=== PATIENT | female | born 1990 | race Caucasian/White ===

== ENCOUNTER → 2023-10-30 10:42 | Outpatient (REF) | payer OTHER, SELFPAY | LOC: RAD 10:42 | PROVIDERS: ATTENDING PHYSICIAN Physician Assistant | DX: R22.2 Localized swelling, mass and lump, trunk (principal) | CPT/HCPCS: 76604 ==

== ENCOUNTER 2024-01-06 20:22 | Emergency (ER) | payer OTHER, SELFPAY ==
[2024-01-06 20:24] VITALS: BP 139/100
--- NOTE | 2024-01-06 20:37 | ED.GENMED ---
History of Present Illness
General
Chief Complaint: Musculo-Skeletal Complaint
Time Seen by Provider: 01/06/24 20:34
Travel History
Have you had any contact with someone who has COVID-19?: No
Do you have any symptoms of coronavirus? Fever > 100 degrees, chills, cough, shortness of breath, sore throat, loss of taste or smell, muscle aches, or headache?: No
History of Present Illness
History of Present Illness:
HPI: Patient presents due to right-sided low back pain. This has been ongoing over the past few days worsened today that she felt he RLE give out and she can fecal incontinence at noon. She also reports component of chronic low back pain along the
midline related to failed epidural procedure at [facility] related to her delivery.
EXAM:
GENERAL: Well appearing in no distress
HEENT: Moist oral mucosa
CARDIOVASCULAR: No murmurs, normal heart rate, regular rhythm, No chest wall tenderness
PULMONARY: No respiratory distress, breath sounds are clear and equal
ABDOMEN: Soft with no peritoneal signs, no tenderness, palpable lipoma in the right upper quadrant soft tissue of the abdomen
BACK: There is mild tenderness just above the PSIS region with no midline L-spine tenderness, negative straight leg raise
NEUROLOGIC: Excellent strength all extremities, no coordination deficits, 5 out of 5 strength in both lower extremities, normal reflex bilateral L4, normal sensation, normal anal tone (TELMA Mccray in the room)
PSYCHIATRIC: Appropriate mental status, normal insight and judgement
EXTREMITIES: Nontender, no edema, moves all extremities equally
SKIN: No rash, no lesions
TIME OF INITIAL ENCOUNTER: 8:45 PM
NUMBER AND COMPLEXITY OF PROBLEMS ADDRESSED AT THE ENCOUNTER
� Chronic conditions affecting care: Has had bariatric surgery
� Acute Exacerbation and/or Progression of Chronic Illness: This is an acute problem
� Differential Diagnosis includes: Nonspecific low back pain, sciatica however the patient has no
AMOUNT AND/OR COMPLEXITY OF DATA TO BE REVIEWED AND ANALYZED
� I performed an independent evaluation of and my interpretation is:
EKG:
CT:
X-rays:
Laboratory Studies:
Other: MRI shows no acute abnormality
� Review of other/old records: I reviewed old records that show a recent lipoma by ultrasound
� Clinical information was obtained by an independent historian:
� Prescriptions/Medications Considered but not given: Recommend against NSAIDs orally as the patient has a history of gastric bypass.
� Further testing considered but not performed:
RISK OF COMPLICATIONS AND/OR MORBIDITY OR MORTALITY OF PATIENT MANAGEMENT
� Social determinants of health affecting care:
� Discussion with other providers: I discussed the concerns with Dr. Owens regarding obtaining MRI tonight
� Escalation of care including admission/observation vs risk of discharge considered: MR imaging unremarkable for acute abnormality. She did not want anything for pain currently. I did give a prescription for short course of
narcotic analgesia.
Past History
Past History
ED Past Medical History: None and Other (That is post surgery for obesity, status post knee surgery, status post slipped capital femoral epiphysis); Negative Asthma, HTN, Hypercholesterolemia or NIDDM
ED Past Surgical History: Cholecystectomy, Orthopedic (Left and right hip surgery, Knee surgery) and Other (Bariatric surgery)
Social History
Tobacco: Non-smoker
Alcohol: None
Drug: None
Personal: Other ()
Living: alone
Employment: Employed
Family History
Family History: Negative Sudden
Phy Exam
Physical Exam
Physical Exam:
See HPI
Course
Orders/Labs/Results
Orders:
Orders
01/06/24 21:00
MR Lumbar Without Contrast Urgent
Comment:
Reason For Exam: stool incontinence, low back pain, gait dysfunctio
Recent pill cam endoscopy?: No
Vital Signs
Initial and Last Documented VS:
Initial Vital Signs
Temp Pulse Resp BP Pulse Ox
98.2 F 91 18 139/100 97
01/06/24 20:24 01/06/24 20:24 01/06/24 20:24 01/06/24 20:24 01/06/24 20:24
Last Documented Vital Signs
Temp Pulse Resp BP Pulse Ox
98.2 F 79 18 115/79 98
01/06/24 20:24 01/06/24 22:23 01/06/24 22:23 01/06/24 22:23 01/06/24 22:23
*Critical Care Note
Total Time (30-74mins, 75-104mins- exclusive of procedures): Not Applicable
ED Attending Note
-
Portions of this chart may have been created with voice recognition software.� Occasional wrong word or��sound alike� substitutions may have occurred due to the inherent limitations of voice recognition software.
Discharge Plan
Departure
Patient Disposition: Home (Routine Discharge)
Date of Disposition: 01/06/24
Time of Disposition: 22:20
Patient with high blood pressure during this ER visit?: Yes
Discharge Problem:
Low back pain
Instructions: Low Back Pain ED, BLOOD PRESSURE
Prescriptions:
New
oxycodone-acetaminophen [Percocet] 5-325 mg tablet
1 - 2 tab PO Q6HPRN PRN (Reason: pain) Qty: 14 0RF
No Action
No Current Medications
ibuprofen 600 mg tablet
600 mg PO Q6H PRN (Reason: pain) Qty: 20 0RF
Referrals:
UNKNOWN - PT DOES,NOT KNOW [Family Provider] -
Activity Restrictions/Additional Instructions:
The radiologist said there is no fracture or dislocation, there is no 'spondylolisthesis', there is no bulging or disc herniation. Incidental findings: 'Small Schmorl's nodes at L4'-this would not be the cause of your pain. Follow-up your primary
care doctor. Return here if worse. I sent a prescription for Percocet to your pharmacy. If you take Percocet, I recommend taking something like MiraLAX to help prevent constipation.
Interventions
Interventions:
*Risk Screen - Suicide Last Done: 01/06/24 20:24
*General Assessment Last Done: 01/06/24 20:24
*Neglect/Abuse Screening Last Done: 01/06/24 20:24
ED- Fall Risk Assessment Last Done: 01/06/24 20:54
*ED COVID-19 Vaccine History Last Done: 01/06/24 20:44
ED-Musculoskeletal Assessment Last Done: 01/06/24 20:53
Discharge Date and Time
Print Language: [id number]
[2024-01-06 20:53] VITALS: BMI 37.0
[2024-01-06 22:23] VITALS: BP 115/79
== END 2024-01-06 22:44 | disposition home or self-care (01) ==
LOC: EMR 20:22
PROVIDERS: EMERGENCY PHYSICIAN Emergency Medicine
DX: M54.50 Low back pain, unspecified (principal); R03.0 Elevated blood-pressure reading, without diagnosis of hypertension
CPT/HCPCS: 99283; 72148

== ENCOUNTER 2024-02-26 06:42 | Day surgery (SDC) | payer OTHER, SELFPAY ==
[2024-02-26] MEDS: TYLENOL 1000 MG PO (08:18)
[2024-02-26] MEDS: NORMOSOL-R 1000 IV (08:18)
[2024-02-26 08:19] VITALS: BMI 36.1
[2024-02-26 08:20] VITALS: BP 96/57
[2024-02-26 08:33] VITALS: BMI 36.1
[2024-02-26 10:05] VITALS: BP 90/52
[2024-02-26 10:20] VITALS: BP 90/57
[2024-02-26 10:35] VITALS: BP 95/51
== END 2024-02-26 10:43 | disposition home or self-care (01) ==
LOC: SDS 06:42
PROVIDERS: ATTENDING PHYSICIAN Surgery; FAMILY PHYSICIAN Physician Assistant
DX: D17.1 Benign lipomatous neoplasm of skin and subcutaneous tissue of trunk (principal); R22.2 Localized swelling, mass and lump, trunk; Z98.84 Bariatric surgery status
CPT/HCPCS: 21552; 88304

== ENCOUNTER → 2024-10-08 17:15 | Outpatient (REF) | payer OTHER, SELFPAY | LOC: RAD 17:15 | PROVIDERS: ATTENDING PHYSICIAN Obstetrics & Gynecology; FAMILY PHYSICIAN Family Medicine | DX: R10.2 Pelvic and perineal pain (principal) | CPT/HCPCS: 76830; 76856 ==

== ENCOUNTER 2025-02-11 10:31 | Emergency (ER) | payer OTHER, SELFPAY ==
[2025-02-11 10:32] VITALS: BP 138/85
[2025-02-11 11:56] LABS: Urine Character Clear (Clear)
[2025-02-11 12:07] LABS: HCG, Urine Qualitative Screen Negative
--- NOTE | 2025-02-11 12:11 | ED.GENMED ---
History of Present Illness
General
Chief Complaint: Flank Pain
Time Seen by Provider: 02/11/25 10:51
History of Present Illness
History of Present Illness:
34-year-old female presents to the emergency department for evaluation of right flank pain intermittently for the past 2 weeks seems to be worse with certain movements particularly when attempting to bend forward or get up from a seated position.
Unable to tolerate lying flat. Seems to radiate occasionally to the anterior right abdomen. No fevers, chills, night sweats, nausea, vomiting, or lower urinary tract voiding symptoms. Prior history of cholecystectomy
Past History
Past History
ED Past Medical History: None and Other (That is post surgery for obesity, status post knee surgery, status post slipped capital femoral epiphysis); Negative Asthma, HTN, Hypercholesterolemia or NIDDM
ED Past Surgical History: Cholecystectomy, Orthopedic (Left and right hip surgery, Knee surgery) and Other (Bariatric surgery)
Social History
Tobacco: Non-smoker
Alcohol: None
Drug: None
Personal: Other ()
Living: alone
Employment: Employed
Family History
Family History: Negative Sudden
Review of Systems
Review of Systems
Allergies reviewed?: Yes
All Other Systems: ROS reviewed and negative except as documented in HPI and ROS
Phy Exam
Physical Exam
Physical Exam:
GEN: Well appearing, NAD, WDWN
HEENT: Oral mucosa moist, no scleral icterus
Cardiac: Regular rate
Lung: No respiratory distress, no tachypnea
Abdomen: Soft, mild right upper quadrant tenderness, no rigidity negative Peres sign
MSK: No gross deformity or injuries. Focal tenderness to the right paraspinous lumbar musculature, no midline bony tenderness
Skin: Good color, no pallor or jaundice, no rashes
Neuro: AO x3, moves all extremities freely
Psych: Calm, cooperative
Course
Orders/Labs/Results
Orders:
Orders
02/11/25 11:03
Test Result ONCE
02/11/25 11:14
Beta Hcg Urine Qualitative Screen [HCG, Urine Qualitative Screen] Urgent
Date Specimen was Collected: 02/11/25
Time Specimen was Collected: 11:11
Urinalysis Reflex To Culture Urgent
Date Specimen was Collected: 02/11/25
Time Specimen was Collected: 11:11
Urine Microscopic Reflex Cult Urgent
02/11/25 12:02
US Renal With Bladder Urgent
Comment:
Reason For Exam: R flank pain
Abnormal Lab Results
02/11/25
11:14
Ur Occult Blood Reflex 1+ A
(Negative)
Urine Bacteria (Reflex) Few A
(Negative)
Vital Signs
Initial and Last Documented VS:
Initial Vital Signs
Temp Pulse Resp BP Pulse Ox
97.5 F 95 16 138/85 99
02/11/25 10:32 02/11/25 10:32 02/11/25 10:32 02/11/25 10:32 02/11/25 10:32
Last Documented Vital Signs
Temp Pulse Resp BP Pulse Ox
97.5 F 80 20 122/84 99
02/11/25 10:32 02/11/25 14:00 02/11/25 14:00 02/11/25 14:00 02/11/25 14:00
MDM/Problems Addressed
MDM/Problems Addressed:
Unclear etiology however favor musculoskeletal given easy reproducibility. Urinalysis bland and ultrasound shows no evidence for hydronephrosis or renal abnormalities. Recommend NSAIDs, patient was previously referred to PT and have encouraged her
to utilize this
*Pulse Oximetry
SaO2: 99
Oxygen Mode of Delivery: Room air
Patient hypoxic: no
*Critical Care Note
Total Time (30-74mins, 75-104mins- exclusive of procedures): Not Applicable
ED Attending Note
-
Portions of this chart may have been created with voice recognition software.� Occasional wrong word or��sound alike� substitutions may have occurred due to the inherent limitations of voice recognition software.
Discharge Plan
Departure
Patient Disposition: Home (Routine Discharge)
Date of Disposition: 02/11/25
Time of Disposition: 14:13
Patient with high blood pressure during this ER visit?: No
Discharge Problem:
Acute right flank pain
Instructions: Flank Pain (DC)
Prescriptions:
No Action
sertraline 50 mg Tablet
75 mg PO DAILY
acetaminophen [acetaminophen] 325 mg tablet
650 mg PO Q4HPRN PRN (Reason: mild pain) Qty: 1 0RF
ibuprofen 200 mg tablet
400 - 600 mg PO Q6HPRN PRN (Reason: moderate pain) Qty: 1 0RF
Referrals:
Mark Toledo MD [Family Provider, Family Practice]
Interventions
Interventions:
*Risk Screen - Suicide Last Done: 02/11/25 10:32
*General Assessment Last Done: 02/11/25 10:32
*Neglect/Abuse Screening Last Done: 02/11/25 13:00
*ED COVID-19 Vaccine History Last Done: 02/11/25 13:00
*Nursing Disposition Last Done: 02/11/25 14:36
MU-Smfiyw-Pzeuynvsgf Assessment Last Done: 02/11/25 13:00
ED-Female Genitourinary Assessment Last Done: 02/11/25 13:00
Discharge Date and Time
Discharge Date/Time: 02/11/25 14:36
Print Language: [id number]
[2025-02-11 12:58] LABS: Urine Red Blood Cell 0-2 /HPF (0-2); Urine Urothelial Cell 0-2 /LPF (FEW); Urine White Cell 0-2 /HPF (0-5)
[2025-02-11 14:00] VITALS: BP 122/84
== END 2025-02-11 14:36 | disposition home or self-care (01) ==
LOC: EMR 10:31
PROVIDERS: Physician Assistant; EMERGENCY PHYSICIAN Emergency Medicine; FAMILY PHYSICIAN Family Medicine
DX: R10.9 Unspecified abdominal pain (principal); E66.9 Obesity, unspecified; E11.9 Type 2 diabetes mellitus without complications; I10 Essential (primary) hypertension; Z90.49 Acquired absence of other specified parts of digestive tract
CPT/HCPCS: 99284; 76770; 81003; 81015; 81025

== ENCOUNTER → 2025-03-18 12:09 | Outpatient (REF) | payer OTHER, SELFPAY | LOC: DHSLP 12:09 | PROVIDERS: ATTENDING PHYSICIAN Family Medicine | DX: G47.19 Other hypersomnia (principal); R06.83 Snoring | CPT/HCPCS: 95800 ==